=== PATIENT | female | born 1960 | race Caucasian/White ===

== ENCOUNTER 2017-11-06 10:04 | Emergency (ER) | payer MEDICAID ==
--- NOTE | 2017-11-06 10:28 | Emergency Department Record ---
History of Present Illness - General Chief complaint: Eye Problem Stated complaint: SORE L EYELID Time Seen by Provider: 11/06/17 10:20 Source: Patient Mode of Arrival: Ambulatory Limitations: No limitations - History of Present Illness Initial comments: The patient is here due to a stye to the L eyelid for 3 days. She denies any visual changes or wearing contacts. chief complaint: Other Onset/Timin -: Days(s) Onset Description: Gradual Location: Left eye Place: Home If Injury: None Consistency: Constant Context: Other Associated Symptoms: None Treatments Prior to Arrival: Other - Related Data Previous Rx's Medication Instructions Recorded Erythromycin Base [Erythromycin 1 apply [facility] QID #1 tube 11/06/17 OPTH Ointment] Allergies Allergy/AdvReac Type Severity Reaction Status Date / Time No Known Drug Allergies Allergy Unverified 08/09/17 13:42 Travel Screening - Travel/Exposure Within Last 30 Days Have you traveled within the last 30 days?: No Review of Systems Constitutional: Denies: Chills, Fever Eyes: Denies: Eye discharge ENT: Denies: Congestion Respiratory: Denies: Cough, Dyspnea Past Medical History - SOCIAL HISTORY Smoking Status: Never smoker Alcohol Use: None Drug Use: None - RESPIRATORY Hx Respiratory Disorders: No - CARDIOVASCULAR Hx Cardio Disorders: No - NEURO Hx Neuro Disorders: No - GI Hx GI Disorders: No - Hx Genitourinary Disorders: No - ENDOCRINE Hx Endocrine Disorders: Yes Hx Diabetes: Yes (type 1) Hx Thyroid Disease: Yes (diabetic) Family Medical History Any Significant Family History?: No Physical Exam - General General Appearance: Alert, Oriented x3, Cooperative, No acute distress - Head Head exam: Atraumatic, Normocephalic, Normal inspection - Eye Eye exam: PERRL, EOMI. negative: Normal appearance (There is a stye to the L upper medial eyelid. There is no surrounding swelling or cellulitis.), Conjunctival injection, Periorbital swelling - Neck Neck exam: Normal inspection, Full ROM. negative: Lymphadenopathy, Tenderness Course Vital Signs 11/06/17 10:20 Temperature 98.9 F Pulse Rate [ 91 H Pulse Ox Probe] Respiratory 20 Rate Blood Pressure 149/89 [Left Arm] Pulse Ox 98 - Reevaluation(s) Reevaluation #1: I did offer to refer the patient to our Opthomologist Dr. Acevedo [facility] but the patient refused and would like to see her own eye doctor. 11/06/17 10:31 Disposition Disposition: Discharge Clinical Impression: Hordeolum externum (stye) Qualifiers: Laterality: left Eyelid: upper Qualified Code(s): H00.014 - Hordeolum externum left upper eyelid Disposition: Home, Self-Care Condition: (2) Stable Instructions: Dorian (ED) Additional Instructions: Please use warm compresses to the L upper eyelid as much as possible. Please use the Emycin opthalmic ointment as directed and please see your eye doctor in 1-2 days for recheck. Prescriptions: Erythromycin Base [Erythromycin OPTH Ointment] 1 apply [facility] QID #1 tube Forms: Patient Portal Access Time of Disposition: 10:28 Quality - Quality Measures Quality Measures: N/A - Blood Pressure Screening View Details: Yes Does Patient Have Any of the Following: No Blood Pressure Classification: Pre-Hypertensive BP Reading Systolic Measurement: 149 Diastolic Measurement: 89 Screening for High Blood Pressure: < Pre-Hypertensive BP, F/U Documented > [ [id number]] Pre-Hypertensive Follow-up Interventions: Referral to alternative/primary care provider.
== END 2017-11-06 10:33 | disposition home or self-care (01) ==
LOC: ER 10:04
DX: H00.014 Hordeolum externum left upper eyelid (principal); E11.9 Type 2 diabetes mellitus without complications; Z79.4 Long term (current) use of insulin
CPT/HCPCS: 99282